=== PATIENT | female | born 2000 | race Caucasian/White ===

== ENCOUNTER 2021-03-27 19:28 | Emergency (ER) | payer SELFPAY | END 2021-03-27 21:42 | disposition home or self-care (01) | LOC: ER1 19:28 | DX: N30.00 Acute cystitis without hematuria (principal) | CPT/HCPCS: 72100; 81001; 84703; 99283 ==

== ENCOUNTER 2021-08-28 15:59 | Emergency (ER) | payer BC ==
[2021-08-28] MEDS ORDERED: NAPROSYN500 MG PO (16:52)
== END 2021-08-28 17:32 | disposition home or self-care (01) ==
LOC: ER1 15:59
DX: S46.912A Strain of unspecified muscle, fascia and tendon at shoulder and upper arm level, left arm, initial encounter (principal); X58.XXXA Exposure to other specified factors, initial encounter
CPT/HCPCS: 99283